=== PATIENT | female | born 1960 | race Caucasian/White ===

== ENCOUNTER → 2017-09-05 | Day surgery (SDC) | payer OTHER ==
[~2017-09-05] MED LIST: BUPIVACAINE HCL PF 0.5% 30 ML VIAL ONE; KETOROLAC TROMETHAMINE 30 MG/ML (IVP) VIAL IV PUSH ONE; LACTATED RINGER'S 1000 ML INJ 1,000 ML ONE; MIDAZOLAM HCL 2 MG/2 ML VIAL ONE; ONDANSETRON HCL 4 MG/2 ML VIAL IV PUSH ONE; PROPOFOL 200 MG/20 ML AMP IV ONE; ceFAZolin 2 GM PREMIX 50 ML ONE
--- NOTE | 2017-09-16 07:37 | MR ---
cc: Faviola Serna DPM DATE: 09/05/2017 SURGEON: Faviola Serna DPM. [employer] KITCHEN MANAGER: None. PREOPERATIVE DIAGNOSIS: Right hallux valgus deformity. POSTOPERATIVE DIAGNOSIS: Right hallux valgus deformity. ANESTHESIA: General with a local infiltrate of 0.5% Marcaine plain infiltrated about the right foot. HEMOSTASIS: Pneumatic ankle tourniquet set at 250 mmHg. ESTIMATED BLOOD LOSS: Less than 5 mL. MATERIALS: 2-0 and 3-0 Vicryl, 3-0 Prolene, 5-0 Vicryl. INJECTABLES: None. COMPLICATIONS: None. INDICATIONS FOR PROCEDURE: The patient is a 56-year-old female who recently underwent Lapidus bunionectomy. Contracture was still evident at the lateral first MPJ. The patient was stating that her toe continues to float towards the second toe. X-rays were indicative of continued hallux valgus deformity. Therefore, decision was made to proceed with lateral capsulotomy. The patient understands all risks, complications and benefits associated with the procedure. She would like to proceed with surgical intervention. DESCRIPTION OF PROCEDURE: The patient was brought back to the operating room, placed on the operating room table in a supine position. A well-padded pneumatic ankle tourniquet was then placed around the right ankle. Local anesthesia was achieved utilizing 0.5% Marcaine plain infiltrated about the right foot in Reese block fashion. The right foot was then prepped and draped in the usual sterile manner. At this time, attention was then directed to the first interspace where a 2 cm incision was made. The incision was deepened through skin and subcutaneous tissue with care to retract all vital neurovascular structures. Dissection was then carried down to the underlying level of the abductor hallucis tendon, which was isolated and freed from its phalangeal sesamoidal and metatarsal attachment. The tendon was noted to lap the length of the integrity for a transfer at this time in order to tenotomized taking out a section of approximately less than 3.5 cm to help prevent any fibrous reattachment. At this time, the lateral release was stressed and found to be complete. The extensor hallucis brevis tendon was then isolated during blunt dissection and tenotomized as well. The entire area was copiously flushed with normal saline and there was noted to be adequate reduction of hallux valgus deformity. Deep tissue was closed with 2-0 Vicryl. Subcutaneous tissue was closed with 3-0 Vicryl. Skin was closed using 5-0 Vicryl subcuticular and nylon was applied to the skin. Steri-Strips were applied to the site. The site was dressed with Adaptic, 4 x 4s, Zuri, cast padding, Blayne. The patient tolerated the procedure and anesthesia well. Pneumatic ankle tourniquet was deflated with adequate capillary refill time to the right foot. The patient tolerated the procedure and anesthesia well. She was transferred from the OR to PACU with vital signs stable and neurovascular status intact to the right foot. YUE Sheldon , 07:06 AM , 07:35 AM
== END | disposition home or self-care (01) ==
LOC: ESDC 05:59
PROVIDERS: ATTEND Podiatrist Foot & Ankle Surgery
DX: M20.11 Hallux valgus (acquired), right foot (principal)
CPT/HCPCS: 01470; 28270; 73620; 76000; J0690; J1885; J2250; J2405; J3010; J7120